=== PATIENT | female | born 1995 | race Caucasian/White ===

== ENCOUNTER → 2018-05-23 | Outpatient (REF) | payer OTHER ==
[2018-05-23 14:54] LABS: HEMATOCRIT 41.1 % (36.0-47.0); HEMOGLOBIN 14.4 g/dl (12.0-15.5); MEAN CORPUSCULAR HEMOGLOBIN 31.2 pg (27.0-33.0); PLATELET COUNT, AUTOMATED 222 10^3/uL (150-450); RED BLOOD COUNT 4.62 10^6/uL (4.00-5.40); WHITE BLOOD COUNT 9.3 10^3/uL (4.0-10.0)
[2018-05-23 15:18] LABS: RUBELLA IgG QUALITATIVE IMMUNE (IMMUNE)
[2018-05-23 15:19] LABS: HEPATITIS B SURFACE ANTIGEN NEGATIVE (NEGATIVE)
[2018-05-23 15:46] LABS: HEPATITIS C VIRUS ABY INDEX 0.1 INDEX (<0.8)
[2018-05-23 15:47] LABS: HIV 1&2 SCREEN CENTAUR NEGATIVE (NEGATIVE)
[2018-05-23 21:07] LABS: HCG, SERUM QUANTITATIVE 63801 MIU/ML
== END ==
LOC: M LAB REF 14:18
DX: O36.80X0 Pregnancy with inconclusive fetal viability, not applicable or unspecified (principal)

== ENCOUNTER → 2018-06-19 | Outpatient (REF) | payer OTHER ==
[2018-06-19 22:46] LABS: CHLAMYDIA DNA AMPLIFICATION NEGATIVE (NEGATIVE); GC DNA AMPLIFICATION NEGATIVE (NEGATIVE)
== END ==
LOC: M LAB REF 17:22
DX: Z34.82 Encounter for supervision of other normal pregnancy, second trimester (principal)

== ENCOUNTER → 2018-11-06 | Outpatient (REF) | payer OTHER | LOC: M LAB REF 17:30 | PROVIDERS: ATTEND Obstetrics & Gynecology | DX: Z34.83 Encounter for supervision of other normal pregnancy, third trimester (principal) ==

== ENCOUNTER 2018-12-10 01:28 | Inpatient (IN) | payer OTHER ==
[2018-12-10] VITALS (32 sets, daily range): BP systolic 96–136; BP diastolic 51–86
[~2018-12-10] VITALS: Ht 167.6 cm; Wt 113.7 kg
[2018-12-10] MEDS ORDERED: PRENTAB9 PO (03:58)
[2018-12-10 05:14] LABS: HEMATOCRIT 38.9 % (36.0-47.0); HEMOGLOBIN 12.8 g/dl (12.0-15.5); MEAN CORPUSCULAR HEMOGLOBIN 29.3 pg (27.0-33.0); MEAN CORPUSCULAR HGB CONC 32.9 g/dl (32.0-36.5); PLATELET COUNT, AUTOMATED 186 10^3/uL (150-450); RED BLOOD COUNT 4.37 10^6/uL (4.00-5.40); WHITE BLOOD COUNT 12.6 10^3/uL (4.0-10.0)
--- NOTE | 2018-12-10 06:03 | HPE ---
DATE OF ADMISSION: 12/10/2018 A 22-year-old G2 (), para (P) 1-0-0-1 female at 41-3/7 weeks gestation by last menstrual period (LMP) consistent with a thirteen week ultrasound, with estimated date of confinement (EDC) 11/30/2018 presents with contractions every 3 to 4 minutes for the last several hours. The contractions have increased in intensity. She denies vaginal bleeding. There is good movement. COURSE: The patient initiated care at with Dr. Ro at [facility] at sixteen weeks gestation on 06/19/2018. Her blood pressure at that time was 138/90, weight 233 pounds. She had an ultrasound for growth on 12/04/2018 which estimated weight at 4463 grams or 9 pounds, 13 ounces. The patient had been offered labor induction at 40+ weeks gestation however declined with the desire to go into labor spontaneously. OBSTETRICAL HISTORY: September 2009 - a 41 week vaginal delivery of 8 pounds, 8 ounce . No complications. PAST MEDICAL HISTORY: Anxiety and depression. PAST SURGICAL HISTORY: None. ALLERGIES: None. SOCIAL HISTORY: The patient lives in [place]. She denies cigarettes, alcohol or drug use. The father of the baby is involved. The patient is not . PHYSICAL EXAMINATION: VITAL SIGNS: Blood pressure 120/78, weight 249. She is in no apparent distress. HEAD AND NECK: Exam normal. LUNGS: Clear. HEART: Regular rate and rhythm. ABDOMEN: Nontender and gravid. heart tones are category 1. Contractions every 5 to 6 minutes. STERILE VAGINAL EXAM: 3 cm, 70% effaced, -2 posterior, soft, vertex. EXTREMITIES: Nontender. LABORATORY DATA: Blood type is A positive, Rubella immune, RPR nonreactive. Hepatitis B and C negative. Group B Streptococcus (GBS) negative. ASSESSMENT: A 22-year-old (G) 2, para (P) 1 female at 41-3/7 weeks gestation presents in early labor. PLAN: The patient will be admitted on 12/10/2018. The patient may require augmentation of her labor if she does not get into active labor in the near future.
[2018-12-10] MEDS ORDERED: ACETAMINOPHEN 500 MG TAB PO STA (09:22)
[2018-12-10 10:19] LABS: ALT/SGPT 15 U/L (12-78); BILIRUBIN,TOTAL 0.4 MG/DL (0.2-1.0); CREATININE FOR GFR 0.54 MG/DL (0.55-1.30); GLOMERULAR FILTRATION RATE > 60.0 (>60); LDH LACTATE DEHYDROGENASE 219 U/L (84-246); URIC ACID 4.6 MG/DL (2.6-6.0)
[2018-12-10] MEDS ORDERED: LACTATED RINGER'S 1000 ML IV STA (11:37)
[2018-12-10] MEDS ORDERED: FENTANYL 2MCG/ML ROPIVACAINE 0.2% IN 0.9% NACL 100ML IVBAG As Ordered ONE (11:52)
[2018-12-10] MEDS ORDERED: OXYTOCIN 30 UNITS IN 0.9% NaCl 500ML IV BAG (J2590) As Ordered ONE (11:58)
[2018-12-10] MEDS ORDERED: EPIDURAL COMMENT XX SCH (13:00)
[2018-12-10] MEDS ORDERED: REFRIGERATOR IV KEYS XX PRN (13:00)
[2018-12-10] MEDS ORDERED: EPIDURAL/PCA KEYS XX PRN (13:00)
[2018-12-10] MEDS ORDERED: ePHEDrine SULFATE 25 MG/5 ML(5MG/ML) SYRINGE IV PRN (13:00)
[2018-12-10] MEDS ORDERED: diphenhydrAMINE INJ 50MG/ML VIAL (J1200) IV PRN (13:00)
[2018-12-10] MEDS ORDERED: ONDANSETRON 4MG/2ML VIAL (J2405) IV PRN (13:00)
[2018-12-10] MEDS ORDERED: FENTANYL/ROPIVACAINE/NACL BAG 100 ML EPIDURAL SCH (13:00)
[2018-12-10] MEDS ORDERED: LACTATED RINGER'S 1000 ML IV PRN (13:00)
[2018-12-10] MEDS ORDERED: NALOXONE INJ 0.4 MG/1 ML VIAL (J2310) IV PRN (13:00)
[2018-12-10] MEDS: LR 1,000 ML IV SCH ×2 (13:01→16:22)
[2018-12-10] MEDS ORDERED: OXYTOCIN DRIP 30 UNITS in APPROPRIATE DILUENT 1 EA IV SCH (15:15)
[2018-12-10] MEDS ORDERED: MEASLES,MUMPS,RUBELLA VACCINE INJ (MMR-II) (90707) SC SCH (19:30)
[2018-12-10] MEDS ORDERED: RHOGAM 300 MCG (1500 IU) INJ (J2790) IM SCH (19:30)
[2018-12-10] MEDS ORDERED: METHYLERGONOVINE MALEATE 0.2 MG TAB PO PRN (19:30)
[2018-12-10] MEDS ORDERED: DIBUCAINE 1% OINTMENT 30GM TOP PRN (19:30)
[2018-12-10 19:32] LABS: CORD GAS ABE V -2.1; CORD GAS HCO3 V 22.6 MEQ/L; CORD GAS O2 SAT V 73.1 %; CORD GAS PCO2 V 38.9 mmHg; CORD GAS PH V 7.382 UNITS; CORD GAS PO2 V 32.2 mmHg; CORD GAS SBC V 22.1 MEQ/L; CORD GAS TCO2 V 23.8 MEQ/L
[2018-12-10 19:35] LABS: CORD GAS ABE A -1.6; CORD GAS HCO3 A 24.1 MEQ/L; CORD GAS O2 SAT A 26.6 %; CORD GAS PCO2 A 44.3 mmHg; CORD GAS PH A 7.354 UNITS; CORD GAS PO2 A 14.9 mmHg; CORD GAS SBC A 21.3 MEQ/L; CORD GAS TCO2 A 25.5 MEQ/L
[2018-12-10] MEDS: DOCUSATE SODIUM 100 MG CAP PO SCH (23:17)
[2018-12-10] MEDS: ACETAMINOPHEN 500 MG TAB PO PRN (23:18)
[2018-12-11] MEDS: IBUPROFEN 800 MG TAB PO PRN ×2 (03:54→12:08)
[2018-12-11 05:41] VITALS: BP 141/65
[2018-12-11] MEDS: ACETAMINOPHEN 500 MG TAB PO PRN ×2 (05:53→18:07)
[2018-12-11] MEDS: DOCUSATE SODIUM 100 MG CAP PO SCH (08:03)
[2018-12-11] MEDS ORDERED: PRENATAL VITAMINS CHEWABLE TABLET PO SCH (09:00)
--- NOTE | 2018-12-11 15:18 | DN ---
DATE: 12/10/2018 Kasey is a 23-year-old female 2, para 1-0-0-1, who was admitted at 41 weeks gestation in labor. She progressed to fully dilated after artificial rupture of membrane with thick meconium and Pitocin augmentation. She then pushed and delivered a live male in right occiput anterior position. scores 8 and 9. weight 10 pounds. Placenta delivered spontaneously intact. Three-vessel cord. A first-degree midline perineal laceration was noted which was repaired using 2-0 chromic. Estimated blood loss 300 mL. Both mother and baby in stable condition.
[2018-12-11] MEDS ORDERED: IBUP-1114 PO (17:21)
[2018-12-11] MEDS ORDERED: MAPA500T2 PO (17:21)
[2018-12-11 18:00] VITALS: BP 128/64
== END 2018-12-11 20:00 | disposition home or self-care (01) | DRG 560 ==
LOC: M LDI 01:28 → M OBS 21:27
PROVIDERS: ADMIT Specialist; ATTEND Specialist
PROC: 10E0XZZ Delivery of Products of Conception, External Approach (ICD-10-PCS; principal; 2018-12-10)
PROC: 0HQ9XZZ Repair Perineum Skin, External Approach (ICD-10-PCS; 2018-12-10)
PROC: 10907ZC Drainage of Amniotic Fluid, Therapeutic from Products of Conception, Via Natural or Artificial Opening (ICD-10-PCS; 2018-12-10)
DX: O48.0 Post-term pregnancy (principal); O77.0 Labor and delivery complicated by meconium in amniotic fluid; O70.0 First degree perineal laceration during delivery; Z37.0 Single live birth; Z3A.41 41 weeks gestation of pregnancy